=== PATIENT | female | born 1985 | race African-American/Black ===

== ENCOUNTER 2017-11-04 12:40 | Emergency (ER) | payer SELFPAY ==
[~2017-11-04] VITALS: Ht 165.1 cm; Wt 129.8 kg
[~2017-11-04 12:40] MED LIST: PREN0.01 PO
[2017-11-04 12:42] VITALS: BP 149/85; PULSE 81; RESP 16; TEMP 98.3; O2SAT 100
[2017-11-04] MEDS ORDERED: CLIN300C5 PO (12:59)
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
== END 2017-11-04 13:15 | disposition home or self-care (01) ==
LOC: PHEFT 12:40
DX: L02.612 Cutaneous abscess of left foot (principal)
CPT/HCPCS: 99283